=== PATIENT | female | born 1950 | race American Indian/Alaskan Native ===

== ENCOUNTER 2017-10-29 05:54 | Day surgery (SDC) | payer BC ==
[2017-10-29] MEDS: AK-Dilate OS SCH ×3 (06:35→06:45)
[2017-10-29] MEDS: VIGAMOX OS SCH ×3 (06:35→06:45)
[2017-10-29] MEDS: MYDRIACYL OS SCH ×3 (06:35→06:45)
--- NOTE | 2017-10-29 06:44 | Anesthesia Day of Surgery ---
Anesthesia Day of Surgery - Day of Surgery Patient Examined: Yes Patient H&P Reviewed: Yes Patient is NPO: Yes Beta Blockers: Yes
--- NOTE | 2017-10-29 06:44 | Anesthesia Consultation ---
Anesthesia Consult and Med Hx Date of service: 10/29/17 - Airway Anesthetic Teeth Evaluation: Dentures ROM Head & Neck: Adequate Mental/Hyoid Distance: Adequate Mallampati Class: Class I Intubation Access Assessment: Good - Pulmonary Exam CTA: Yes - Cardiac Exam Cardiac Exam: RRR - Pre-Operative Health Status ASA Pre-Surgery Classification: ASA3 Proposed Anesthetic Plan: MAC - Pulmonary Hx Smoking: Yes (FOR 6 YEARS, QUIT 21 YEARS AGO, START BACK 09/06) - Cardiovascular System Hx Hypertension: Yes (SINCE HER 50'S) - Central Nervous System Hx Psychiatric Problems: No - Endocrine Hx Non-Insulin Dependent Diabetes: Yes - Other Systems Hx Alcohol Use: No Hx Substance Use: No Hx Cancer: No
[2017-10-29] MEDS ORDERED: TETRACAINE 0.5% OS PRN (07:00)
[2017-10-29 07:12] VITALS: BP 129/75
[2017-10-29] MEDS ORDERED: VERSED ONE (07:31)
[2017-10-29] MEDS ORDERED: SUBLIMAZE ONE ×2 (07:31→08:23)
[2017-10-29] MEDS ORDERED: WATER FOR IRRIG STERILE IR ONE (08:00)
--- NOTE | 2017-10-29 08:34 | Operative Report ---
Operative Report Operative Report: PATIENT'S NAME: DATE OF : DATE OF SURGERY: 10/29/2017 PREOPERATIVE DIAGNOSIS: Cataract left eye POSTOPERATIVE DIAGNOSIS: Same OPERATIVE PROCEDURE: Phacoemulsification with intraocular lens implantation, left eye SURGEON: Gabrielle Garza M.D. SANDBLASTER PAINT SPRAYER SURGEON: German Lens: [id number] 22.0 D ANESTHESIA: Monitored anesthesia care in combination with topical and intracameral anesthesia because of the established specific risk of reflux, arrhythmias, or anxiety attacks associated with ocular manipulation, as well as the difficulty of the shim plug cutter to manage such potentially catastrophic events while simultaneously attempting to complete the surgical procedure and was deemed necessary for the patient's safety to have an Heating And Blending Supervisor present during the procedure whenever possible. An Heating And Blending Supervisor was utilized to regulate the intravenous sedation of the patient so the patient was cooperative yet not asleep in order for the patient to successfully maintain fixation of the eye on the operating light of the microscope. COMPLICATIONS: No surgical complications No blood loss. ALLERGIES: Codeine morphine tetracycline PROGNOSIS: Excellent INDICATIONS FOR SURGERY: The patient is undergoing surgery in the hopes of eliminating or improving these visual difficulties. PROCEDURE: After arriving at the surgery center, the patient was given topical anesthetic and dilating drops, as noted in the record. The patient was then taken into the operating room and given more anesthetic drops. The eyelids , lashes, and lid margins were scrubbed with Betadine solution, and the patient was draped. The Nurse Heating And Blending Supervisor administered IV sedation and monitored the patient during the procedure. The eye was then fixated with a 0.12, and a stab incision was made in the peripheral clear cornea into the anterior chamber. This was made on my left side. Viscoelastic was next used to fill the anterior chamber. The eye was once again fixated with the 0.12 forceps and a keratome was used make an incision in clear cornea peripherally on my right hand side temporally. The capsule forceps were used to open the central anterior capsule and then make a continuous round capsulotomy. Hydrodissection was carried out utilizing a cannula and balanced salt solution to delineate the cortical material from the capsule and the nucleus from the cortical material. The phaco tip was introduced into the eye and used to remove the anterior cortical material in the area of the capsulotomy. Then the phaco tip was buried into the nucleus, and a chopping instrument was introduced into the eye and used to provide countertraction in the nucleus between this instrument and the phaco tip fracturing the nucleus. This procedure was repeated multiple times, providing multiple small segments of the lens, and then the phaco tip was used to remove each of these segments. An I/A tip was then used to remove the remaining cortex. The anterior chamber was refilled with viscoelastic. An one-piece, acrylic intraocular lens was then placed into an inserting cartridge. The tip of the inserting cartridge was introduced into the keratome incision and into the anterior chamber. The implant was gently advanced through the cartridge and into the eye, where it unfolded, and both haptics were placed in the capsular bag, where it centered nicely and appeared to be well fixated. After placement of the intraocular lens, the I~and~A handpiece was placed back into the eye and used to remove the viscoelastic, including viscoelastic that was behind the optic of the intraocular lens. The anterior chamber was then filled with balanced salt solution, and hydration of the wound was used to cause swelling of the wound and more appropriate watertight closure. When the wound was found to be firm, the patient was asked to comment on how bright the light was. If there was no light perception at all or if the light was substantially dimmer than during the rest of the surgery, the amount of fluid in the eye was decompressed to lower the intraocular pressure until the patient could see the bright light again. This was done to avoid any damage or decreased blood flow to the optic nerve. MEDICATIONS APPLIED AT END OF SURGERY: One drop of Pred Forte and Vigamox The patient was given a shield to wear at night and was instructed not to rub or push on the eye. DISCHARGE SUMMARY: The patient was released in stable condition. The patient and those with the patient were given a written sheet of postoperative instructions and counseling on any abnormal laboratory studies. The patient is to see us tomorrow for follow-up in the office and is to call immediately for any difficulties. Gabrielle Garza M.D. Date
--- NOTE | 2017-10-29 08:35 | Short Stay Summary ---
Short Stay Documentation Date of service: 10/29/17 - History H&P: obtained from office - Allergies and Medications Current Medications: Allergies codeine Allergy (Verified 10/27/17 11:44) Itching morphine Allergy (Verified 10/27/17 11:44) Itching tetracycline Allergy (Verified 10/27/17 11:44) Itching Home Medications Medication Instructions Recorded Confirmed Last Taken Type Carvedilol [Carvedilol] 6.25 mg PO DAILY 10/27/17 10/29/17 10/29/17 04:00 History Insulin Glargine,Hum.rec.anlog 20 units SUB-Q QHS 10/27/17 10/29/17 10/28/17 20: 30 History [Lantus] 20 UNITS Omeprazole [Omeprazole] 40 mg PO DAILY 10/27/17 10/29/17 10/15/17 History Sitagliptin Phos/Metformin HCl 1 tab PO DAILY 10/27/17 10/29/17 10/28/17 20:30 History [Janumet XR 50-1,000 mg] amLODIPine/VALSARTAN [Exforge 1 each PO DAILY 10/27/17 10/29/17 10/29/17 04:00 History 10-160 mg Tablet] glipiZIDE [Glucotrol] 10 mg PO DAILY 10/27/17 10/29/17 10/28/17 History traMADol [Ultram] 50 mg PO Q6HR PRN 10/27/17 10/29/17 10/15/17 History Active Medications Acetazolamide (Diamox) 500 mg IV Q12HR ONE Stop: 10/29/17 09:01 Moxifloxacin HCl (Vigamox) 1 drops OS Q5MIN [facility] Stop: 10/31/17 07:01 Last Admin: 10/29/17 06:45 Dose: 1 drops Phenylephrine HCl (Ak-Dilate) 1 drops OS Q5MIN [facility] Stop: 10/31/17 07:01 Last Admin: 10/29/17 06:45 Dose: 1 drops Prednisolone Acetate (Pred Forte 1%) 1 drops OS QID [facility] Tetracaine HCl (Tetracaine 0.5%) 1 drops OS Q5M PRN PRN Reason: Analgesia Last Admin: 10/29/17 06:33 Dose: 1 drops Tropicamide (Mydriacyl) 1 drops OS Q5MIN [facility] Stop: 10/31/17 07:01 Last Admin: 10/29/17 06:45 Dose: 1 drops - Brief post op/procedure progress note Date of procedure: 10/29/17 Pre-op diagnosis: left cataract Post-op diagnosis: same Procedure: Phacoemulsification with intraocular lens insertion left eye Anesthesia: MAC, local Surgeon: PABLO MADRID Estimated blood loss: none Pathology: none Condition: stable - Disposition Condition at discharge: Good Disposition: DC-01 TO HOME OR SELFCARE - Discharge Diagnoses (1) Cataract Status: Acute Qualifiers: Cataract type: age-related Age-related cataract type: nuclear Laterality : left Qualified Code(s): H25.12 - Age-related nuclear cataract, left eye Short Stay Discharge Plan Follow up with: GARO WYATT MD [Primary Care Provider] - 7 Days
[2017-10-29] MEDS ORDERED: PRED FORTE 1% OS SCH ×2 (08:43→10:00)
--- NOTE | 2017-10-29 08:43 | Post Anesthesia Evaluation ---
- Post Anesthesia Evaluation Patient Participated: Yes Airway Patent: Yes Stable Respiratory Function: Yes Nausea/Vomiting: No Temp > 96.8F: Yes Pain Manageable: Yes Adequeate Hydration: Yes Anesthesia Complications: No
[2017-10-29] MEDS ORDERED: DIAMOX IV ONE (09:00)
[2017-10-29] MEDS ORDERED: DIAMOX PO ONE (09:31)
== END 2017-10-29 09:58 | disposition home or self-care (01) ==
LOC: OR 05:54
PROC: 08RK3JZ Replacement of Left Lens with Synthetic Substitute, Percutaneous Approach (ICD-10-PCS; principal; 2017-10-29)
DX: E11.36 Type 2 diabetes mellitus with diabetic cataract (principal); I10 Essential (primary) hypertension; M19.90 Unspecified osteoarthritis, unspecified site; K21.9 Gastro-esophageal reflux disease without esophagitis; E78.00 Pure hypercholesterolemia, unspecified; Z88.1 Allergy status to other antibiotic agents; Z88.5 Allergy status to narcotic agent; Z79.4 Long term (current) use of insulin; Z87.891 Personal history of nicotine dependence; Z98.890 Other specified postprocedural states; Z90.710 Acquired absence of both cervix and uterus; Z96.641 Presence of right artificial hip joint
CPT/HCPCS: 66984; 82962; J1120; J2250; J3010; V2632

== ENCOUNTER 2017-11-12 06:00 | Day surgery (SDC) | payer BC ==
[~2017-11-12 06:00] MED LIST: TETRACAINE 0.5% OD PRN
[2017-11-12] MEDS ORDERED: NACL BACTERIOSTATIC INFILTRATI ONE (06:11)
[2017-11-12] MEDS: VIGAMOX OD SCH ×3 (06:30→06:40)
[2017-11-12] MEDS: AK-Dilate OD SCH ×3 (06:30→06:40)
[2017-11-12] MEDS: MYDRIACYL OD SCH ×3 (06:30→06:40)
--- NOTE | 2017-11-12 07:08 | Anesthesia Day of Surgery ---
Anesthesia Day of Surgery - Day of Surgery Patient Examined: Yes Patient H&P Reviewed: Yes Patient is NPO: Yes Beta Blockers: Yes
--- NOTE | 2017-11-12 07:08 | Anesthesia Consultation ---
Anesthesia Consult and Med Hx Date of service: 11/12/17 - Airway Anesthetic Teeth Evaluation: Dentures ROM Head & Neck: Adequate Mental/Hyoid Distance: Adequate Mallampati Class: Class II Intubation Access Assessment: Good - Pulmonary Exam CTA: Yes - Cardiac Exam Cardiac Exam: RRR - Pre-Operative Health Status ASA Pre-Surgery Classification: ASA3 Proposed Anesthetic Plan: MAC - Pulmonary Hx Smoking: Yes (STOPPED 21 YEARS AGO, PICKED BACK UP 2017) - Cardiovascular System Hx Hypertension: Yes (SINCE HER 50'S) - Central Nervous System Hx Psychiatric Problems: No - Endocrine Hx Non-Insulin Dependent Diabetes: Yes - Other Systems Hx Alcohol Use: No Hx Substance Use: No Hx Cancer: No - Additional Comments Anesthesia Medical History Comments: had the other eye done on 10/29/17. tolearated procedure and anesthesia well
[2017-11-12] MEDS ORDERED: VERSED ONE (07:34)
[2017-11-12] MEDS ORDERED: SUBLIMAZE ONE (07:36)
[2017-11-12] MEDS ORDERED: PRED FORTE 1% ONE (08:03)
--- NOTE | 2017-11-12 08:23 | Operative Report ---
Operative Report Operative Report: PATIENT'S NAME: DATE OF : DATE OF SURGERY: 11/12/2017 PREOPERATIVE DIAGNOSIS: Cataract right eye POSTOPERATIVE DIAGNOSIS: Same OPERATIVE PROCEDURE: Phacoemulsification with intraocular lens implantation, right eye SURGEON: Gabrielle Garza M.D. TOOLSMITH SURGEON: German Lens: [id number] 21.5 D ANESTHESIA: Monitored anesthesia care in combination with topical and intracameral anesthesia because of the established specific risk of reflux, arrhythmias, or anxiety attacks associated with ocular manipulation, as well as the difficulty of the playroom attendant to manage such potentially catastrophic events while simultaneously attempting to complete the surgical procedure and was deemed necessary for the patient's safety to have an Supervisor Mirror [employer]rication present during the procedure whenever possible. An Supervisor Mirror [employer]ation was utilized to regulate the intravenous sedation of the patient so the patient was cooperative yet not asleep in order for the patient to successfully maintain fixation of the eye on the operating light of the microscope. COMPLICATIONS: No surgical complications No blood loss. ALLERGIES: Codeine morphine and tetracycline PROGNOSIS: Excellent INDICATIONS FOR SURGERY: The patient is undergoing surgery in the hopes of eliminating or improving these visual difficulties. PROCEDURE: After arriving at the surgery center, the patient was given topical anesthetic and dilating drops, as noted in the record. The patient was then taken into the operating room and given more anesthetic drops. The eyelids , lashes, and lid margins were scrubbed with Betadine solution, and the patient was draped. The Nurse Supervisor Mirror [employer]rication administered IV sedation and monitored the patient during the procedure. The eye was then fixated with a 0.12, and a stab incision was made in the peripheral clear cornea into the anterior chamber. This was made on my left side. Viscoelastic was next used to fill the anterior chamber. The eye was once again fixated with the 0.12 forceps and a keratome was used make an incision in clear cornea peripherally on my right hand side temporally. The capsule forceps were used to open the central anterior capsule and then make a continuous round capsulotomy. Hydrodissection was carried out utilizing a cannula and balanced salt solution to delineate the cortical material from the capsule and the nucleus from the cortical material. The phaco tip was introduced into the eye and used to remove the anterior cortical material in the area of the capsulotomy. Then the phaco tip was buried into the nucleus, and a chopping instrument was introduced into the eye and used to provide countertraction in the nucleus between this instrument and the phaco tip fracturing the nucleus. This procedure was repeated multiple times, providing multiple small segments of the lens, and then the phaco tip was used to remove each of these segments. An I/A tip was then used to remove the remaining cortex. The anterior chamber was refilled with viscoelastic. An one-piece, acrylic intraocular lens was then placed into an inserting cartridge. The tip of the inserting cartridge was introduced into the keratome incision and into the anterior chamber. The implant was gently advanced through the cartridge and into the eye, where it unfolded, and both haptics were placed in the capsular bag, where it centered nicely and appeared to be well fixated. After placement of the intraocular lens, the I~and~A handpiece was placed back into the eye and used to remove the viscoelastic, including viscoelastic that was behind the optic of the intraocular lens. The anterior chamber was then filled with balanced salt solution, and hydration of the wound was used to cause swelling of the wound and more appropriate watertight closure. When the wound was found to be firm, the patient was asked to comment on how bright the light was. If there was no light perception at all or if the light was substantially dimmer than during the rest of the surgery, the amount of fluid in the eye was decompressed to lower the intraocular pressure until the patient could see the bright light again. This was done to avoid any damage or decreased blood flow to the optic nerve. MEDICATIONS APPLIED AT END OF SURGERY: One drop of Pred Forte and Vigamox The patient was given a shield to wear at night and was instructed not to rub or push on the eye. DISCHARGE SUMMARY: The patient was released in stable condition. The patient and those with the patient were given a written sheet of postoperative instructions and counseling on any abnormal laboratory studies. The patient is to see us tomorrow for follow-up in the office and is to call immediately for any difficulties. Gabrielle Garza M.D. Date
--- NOTE | 2017-11-12 08:24 | Short Stay Summary ---
Short Stay Documentation Date of service: 11/12/17 - History H&P: obtained from office - Allergies and Medications Current Medications: Allergies codeine Allergy (Verified 11/11/17 11:23) Itching morphine Allergy (Verified 11/12/17 06:40) Itching causes bruising and itching tetracycline Allergy (Verified 11/11/17 11:23) Itching adhesives Adverse Reaction (Uncoded 11/12/17 06:40) Rash Home Medications Medication Instructions Recorded Confirmed Last Taken Type Carvedilol [Carvedilol] 6.25 mg PO DAILY 10/27/17 11/12/17 11/12/17 History Insulin Glargine,Hum.rec.anlog 20 units SUB-Q QHS 10/27/17 11/12/17 11/11/17 History [Lantus] Omeprazole [Omeprazole] 40 mg PO DAILY 10/27/17 11/12/17 11/11/17 History Sitagliptin Phos/Metformin HCl 1 tab PO DAILY 10/27/17 11/12/17 11/11/17 History [Janumet XR 50-1,000 mg] amLODIPine/VALSARTAN [Exforge 1 each PO DAILY 10/27/17 11/12/17 11/12/17 History 10-160 mg Tablet] glipiZIDE [Glucotrol] 10 mg PO DAILY 10/27/17 11/12/17 11/11/17 History traMADol [Ultram] 50 mg PO Q6HR PRN 10/27/17 11/12/17 11/05/17 History Active Medications Acetazolamide (Diamox) 500 mg PO BID ONE Stop: 11/12/17 08:23 Moxifloxacin HCl (Vigamox) 1 drops OD Q5MIN [facility] Stop: 11/12/17 23:59 Last Admin: 11/12/17 06:40 Dose: 1 drops Phenylephrine HCl (Ak-Dilate) 1 drops OD Q5MIN [facility] Stop: 11/12/17 23:59 Last Admin: 11/12/17 06:40 Dose: 1 drops Prednisolone Acetate (Pred Forte 1%) 1 drops OD QID [facility] Tetracaine HCl (Tetracaine 0.5%) 1 drops OD Q5M PRN PRN Reason: Analgesia Stop: 11/12/17 23:59 Last Admin: 11/12/17 06:30 Dose: 1 drops Tropicamide (Mydriacyl) 1 drops OD Q5MIN [facility] Stop: 11/12/17 23:59 Last Admin: 11/12/17 06:40 Dose: 1 drops - Brief post op/procedure progress note Date of procedure: 11/12/17 Pre-op diagnosis: right cataract Post-op diagnosis: same Procedure: Phacoemulsification with intraocular lens insertion right eye Anesthesia: MAC, local Surgeon: PABLO MADRID Estimated blood loss: none Pathology: none Condition: stable - Disposition Condition at discharge: Good Disposition: DC-01 TO HOME OR SELFCARE - Discharge Diagnoses (1) Cataract Status: Acute Qualifiers: Cataract type: age-related Age-related cataract type: nuclear Laterality : right Qualified Code(s): H25.11 - Age-related nuclear cataract, right eye Short Stay Discharge Plan Additional Instructions: FOLLOW SURGEON INSTRUCTION SHEETS. Follow up with: BRIAN HERNANDEZ MD [Primary Care Provider] - 7 Days Forms: [facility]
[2017-11-12] MEDS ORDERED: PRED FORTE 1% OD SCH (09:00)
[2017-11-12] MEDS ORDERED: DIAMOX PO ONE (09:00)
[2017-11-12 09:40] VITALS: BP 121/59
[2017-11-12] MEDS ORDERED: XYLOCAINE MPF 1% INFILTRATI ONE (11:05)
== END 2017-11-12 09:55 | disposition home or self-care (01) ==
LOC: OR 06:00
DX: E11.36 Type 2 diabetes mellitus with diabetic cataract (principal); M19.90 Unspecified osteoarthritis, unspecified site; I10 Essential (primary) hypertension; E66.9 Obesity, unspecified; Z91.040 Latex allergy status; Z88.5 Allergy status to narcotic agent; Z91.048 Other nonmedicinal substance allergy status; Z79.4 Long term (current) use of insulin; Z79.899 Other long term (current) drug therapy; Z88.1 Allergy status to other antibiotic agents; Z87.891 Personal history of nicotine dependence
CPT/HCPCS: 66984; 82962; J2250; J3010; V2632